=== PATIENT | male | born 1960 | race African-American/Black ===

== ENCOUNTER 2025-05-30 09:45 | Emergency (ER) | payer MEDICARE, SELFPAY ==
--- NOTE | ~2025-05-30 | XR_ITS ---
Examination: XR chest 2V Clinical History: wheezing /SOB 9 days nonsmoker hx bronchiti/pneumonia/asthma Comparison: None Technique: PA and Lateral Findings: Cardiomediastinal silhouette normal size and configuration. Small retrocardiac opacity. No acute bony abnormality. IMPRESSION: 1. Small retrocardiac atelectasis and/or airspace disease. Reviewed, dictated and finalized at location R. ER/WAITRESS DINING [facility]
--- NOTE | 2025-05-30 09:52 | ED_ITS ---
HPI - General Adult General Chief complaint: Upper Respiratory Infection Stated complaint: Sinus/Cough Time Seen by Provider: 05/30/25 09:51 Source: patient Mode of arrival: ambulatory Limitations: no limitations History of Present Illness HPI narrative: 65 year old male patient presents to [facility] with complaints of coughing, shortness of breath and wheezing. Patient states he has also had a runny nose, nasal congestion watery and itchy eyes. Patient states that he has had symptoms for about a week now. Does have history of asthma and does have an albuterol inhaler at home but states he has not used it because he states I can still breathe. denies fevers body aches or chills at this time. Patient has had history of walking pneumonia in the past. Related Data Home Medications ?Medication ?Instructions ?Recorded ?Confirmed ?Last Taken ?Type albuterol 90 mcg/actuation aerosol mcg inhalation 05/10 09/02 Unknown History inhaler rosuvastatin 10 mg tablet mg 05/30/25 Unknown History Allergies Allergy/AdvReac Type Severity Reaction Status Date / Time No Known Drug Allergies Allergy none Verified 05/30/25 10:10 Review of Systems Review of Systems: CONSTITUTIONAL: Denies fever, chills, or sweats. EYES: Denies visual changes, redness, or discharge. ENT: Positive rhinorrhea, congestion, denies sore throat, or otalgia. CARDIOVASCULAR: Denies chest pain, palpitations, or edema. RESPIRATORY: positive cough and dyspnea. GASTROINTESTINAL: Denies abdominal pain, nausea, vomiting, or diarrhea. GENITOURINARY: Denies dysuria or hematuria. SKIN: Denies rash or itching. MUSCULOSKELETAL: Denies back pain, joint pain, or myalgia. NEUROLOGIC: Denies headache, numbness, or weakness. PSYCHIATRIC: Denies anxiety or depression. [facility] Past Medical History Medical History (Updated 05/30/25 @ 10:52 by Enedelia Craft APRN) Hypercholesteremia Asthma Comments At the time of my signature I agree with nursing past medical history, surgical, social, and family history. There is no relevant family history pertinent to the presenting complaint. Exam Narrative: GENERAL: Well-appearing, well-nourished, and in no acute distress. HEAD: Normocephalic, atraumatic. EYES: PERRLA and EOMI. ENT: Nares with erythema edema noted bilaterally, no rhinorrhea or epistaxis. Mucous membranes moist. posterior pharynx with no erythema, tonsillar enlargement, exudates or lesions present. Bilateral TMs are clear no erythema foreign bodies the canal. NECK: Supple. No lymphadenopathy CHEST: Patient has expiratory wheezing to noted to bilateral lower lobes and mild expiratory wheezing noted to bilateral upper lobes on auscultation. No respiratory distress. no tripoding noted. Patient able to talk in clear complete sentences. HEART: Regular rate and rhythm. No murmur heard. Normal peripheral pulses. ABDOMEN: Soft, nontender, nondistended, normal active bowel sounds. EXTREMITIES: Normal range of motion. No edema. SKIN: Warm, dry, no rash. NEURO: No focal deficits. Alert and oriented x3. Course Course Level of Care: Express Care Visit Reevaluation(s) Reevaluation #1: re-evaluated patient notified him that the x-ray does show possibly some developing pneumonia and reactive airway disease. Discussed with patient that based on his symptoms as well as the x-ray we will go ahead and treat him today with a Zithromax in, albuterol inhaler and steroids. Discussed with patient that during viral season and before he travels he needs to be taking a daily antihistamine to help with congestion and sinuses. Patient is aware the plan of care denies any other questions or concerns at this time. Date: 05/30/25 Time: 11:02 Vital Signs Vital signs: Vital Signs Temperature 36.4 C 05/30/25 10:00 Pulse Rate 64 05/30/25 10:00 Respiratory Rate 18 05/30/25 10:00 Blood Pressure 128/88 05/30/25 10:00 Pulse Oximetry 99 05/30/25 10:00 Oxygen Delivery Room Air 05/30/25 10:00 Temperature 36.4 C 05/30/25 10:00 Pulse Rate 64 05/30/25 10:00 Respiratory Rate 18 05/30/25 10:00 Blood Pressure 128/88 05/30/25 10:00 Pulse Oximetry 99 05/30/25 10:00 Oxygen Delivery Room Air 05/30/25 10:00 Vital signs reviewed. Medical Decision Making MDM Narrative Medical decision making narrative: Plan of care for patient is to obtain a chest x-ray to rule out pneumonia. Notified patient that his point of care testing for fluid and COVID were both negative. We will also provide him a DuoNeb today to help with the wheezing noted during exam. Differential Diagnosis Differential Diagnosis: Differential diagnosis: Allergic rhinitis, chronic sinusitis, tonsillitis, acute sinusitis, infectious mononucleosis, seasonal influenza, pertussis, diphtheria, meningococcal disease, viral syndrome, viral bronchitis, RSV, COVID- 19 Vital Signs Vital Signs: Vital Signs Temperature 36.4 C 05/30/25 10:00 Pulse Rate 64 05/30/25 10:00 Respiratory Rate 18 05/30/25 10:00 Blood Pressure 128/88 05/30/25 10:00 Pulse Oximetry 99 05/30/25 10:00 Oxygen Delivery Room Air 05/30/25 10:00 Temperature 36.4 C 05/30/25 10:00 Pulse Rate 64 05/30/25 10:00 Respiratory Rate 18 05/30/25 10:00 Blood Pressure 128/88 05/30/25 10:00 Pulse Oximetry 99 05/30/25 10:00 Oxygen Delivery Room Air 05/30/25 10:00 Imaging Data Radiologist's impression: [id number] [place] [address] XRay Report Signed Patient: Butch Gaitan : 1960 MR#: [id number] Age: 65 Acct:[id number] Loc: [facility] ADM Date: 05/30/[address]: Ordering Physician: Enedelia Craft APRN Date of Service: 05/30/25 Procedure(s): XR chest 2V Accession Number(s): [id number] cc: TOOL AND DIE INSPECTOR PHYSICIAN; Enedelia Craft INVESTIGATIVE AGENT~ Examination: XR chest 2V Clinical History: wheezing /SOB 9 days nonsmoker hx bronchiti/pneumonia/asthma Comparison: None Technique: PA and Lateral Findings: Cardiomediastinal silhouette normal size and configuration. Small retrocardiac opacity. No acute bony abnormality. IMPRESSION: 1. Small retrocardiac atelectasis and/or airspace disease. Reviewed, dictated and finalized at location R. ER ATTACHER Critical Care Time Critical Care Time Critical Care Time: No Discharge Plan Discharge Clinical Impression: Upper respiratory infection with cough and congestion, Asthma exacerbation Patient Disposition: Home Condition: Stable Instructions: Antibiotic Form, Asthma (ED) Additional Instructions: Take your medication exactly as directed. Don't skip doses. Continue taking your antibiotics as directed until they are all gone - even if you start to feel better. This will prevent the pneumonia from coming back. Drink at least 8 glasses of water daily, unless directed otherwise. This helps to loosen and thin secretions so that you can cough them up. Use a cool-mist humidifier in your bedroom. Be sure to clean the humidifier daily. Coughing up mucus is normal. Don't use medications to suppress your cough unless your cough is dry, painful, or interferes with your sleep. You may use an expectorant if ordered by your doctor. Warm compresses or a heating pad on the lowest setting can be used to relieve chest discomfort. Use several times a day for 15 to 20 minutes at a time. (To prevent injuring your skin, be sure the temperature of the compress or heating pad is warm, not hot.) Get plenty of rest until your fever, shortness of breath, and chest pain go away. Plan to get a flu shot every year. Ask your doctor about pneumonia vaccinations. Call 911 right away if you have any of the following: Chest pain Trouble breathing Blue lips or fingernails Otherwise, call your doctor if you have any of the following: Fever above 101.5?F (38.6?C) Yellow, green, bloody, or smelly sputum More than normal mucus production Vomiting during viral season and especially when you travel you need to be taking a daily antihistamine something such as a 24 hour Zyrtec, Claritin or Patricia. Definitely take this at least an hour before you fly and this will help decrease risk of congestion and inflammation to the sinuses. To reinflate your lungs please be doing the albuterol inhaler 2 puffs every 4 hours for at least the next 2-3 days and then use your albuterol inhaler as needed for any coughing, wheezing or shortness of breath. If you use the albuterol inhaler when symptoms 1st start this can prevent the symptoms from getting worse and turning into pneumonia Patient Language: Mauritian Prescriptions: New prednisone 20 mg tablet 40 mg PO DAILY 5 Days Qty: 10 0RF albuterol sulfate [Ventolin HFA] 90 mcg/actuation HFA aerosol inhaler 2 puff INHALATION .Q4 hours PRN (Reason: cough) Qty: 18 0RF azithromycin 250 mg tablet See Rx Instructions .ROUTE .COMPLEX Qty: 6 0RF Rx Instructions: For 250 mg dose pack: take 500 mg today (day 1), then 250 mg for 4 days (days 2-5) No Action rosuvastatin 10 mg tablet albuterol 90 mcg/actuation aerosol inhalation Follow-up/Referrals: UNKNOWN,DOCTOR [Non-Staff] Time of Disposition: 10:54
[2025-05-30 10:00] VITALS: BP 128/88; PULSE 64; RESP 18; TEMP 36.4; O2SAT 99
[2025-05-30] MEDS: IPRATROPIUM 0.5 MG/ALBUTEROL SULFATE 2.5 MG (BASE) AMPUL.NEB 3 ML INHALATION (10:43)
[2025-06-01 11:49] LABS: EDCOVIDSCREEN Negative (Negative); EDINFLUASCREEN Negative (Negative); EDINFLUBSCREEN Negative (Negative)
[2025-06-01 11:49] LABS: EDCOVIDSCREEN Negative (Negative); EDINFLUASCREEN Negative (Negative); EDINFLUBSCREEN Negative (Negative)
== END 2025-05-30 11:11 | disposition home or self-care (01) ==
PROVIDERS: Emergency Provider Nurse Practitioner Family
DX: J06.9 Acute upper respiratory infection, unspecified (principal); R05.9 Cough, unspecified; J45.901 Unspecified asthma with (acute) exacerbation; Z20.822 Contact with and (suspected) exposure to COVID-19; E78.00 Pure hypercholesterolemia, unspecified
CPT/HCPCS: 71046; 87426; 87804; 94640; 99213; G0463